=== PATIENT | female | born 1995 | race Caucasian/White ===

== ENCOUNTER 2017-07-30 08:01 | Emergency (ER) | payer OTHER ==
--- NOTE | 2017-07-30 09:01 | ER Document Report ---
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 Her arms been hurting for 2 days, achy right upper arm pain which he did not think much of it. This morning she woke up and had sharp pain in her neck throat and felt palpitations. This is now resolved. She did not faint nor was she dizzy at the time. She does not use cocaine or methamphetamine but drinks lots of caffeine. - Related Data Allergies/Adverse Reactions: No Known Allergies Allergy (Verified 07/30/17 08:08) Past Medical History - Social History Smoking Status: Never Smoker Family History: None Review of Systems - Review of Systems Notes: REVIEW OF SYSTEMS GEN: Denies fever, chills, weight loss ENT: Denies sore throat, nasal discharge, ear pain EYES: Denies blurry vision, eye pain, discharge CV: Palpitations RESP: Denies cough, shortness of breath, wheezing GI: Denies abdominal pain, nausea, vomiting, diarrhea MSK: D arm pain neck pain SKIN: Denies rash, skin lesions LYMPH: Denies swollen glands/lymph nodes NEURO: Denies headache, focal weakness or numbness, dizziness PSYCH: Denies depression, suicidal or homicidal ideation PHYSICAL EXAMINATION General: No acute distress, well-nourished Head: Atraumatic, normocephalic ENT: Mouth normal, oropharynx moist, no exudates or tonsillar enlargement Eyes: Conjunctiva normal, pupils equal, lids normal Neck: No JVD, supple, no guarding CVS: Normal rate, regular rhythm, no murmurs Resp: No resp distress, equal and normal breath sounds bilaterally GI: Nondistended, soft, no tenderness to palpation, no rebound or guarding Ext: No deformities, no edema, normal range of motion in upper and lower ext Back: No CVA or midline TTP Skin: No rash, warm Lymphatic: No lymphadeopathy noted Neuro: Awake, alert. Face symmetric. GCS 15. Physical Exam - Vital signs Vitals: Temp Pulse Resp BP Pulse Ox 98.4 F 99 16 133/88 H 100 07/30/17 08:12 07/30/17 08:12 07/30/17 08:12 07/30/17 08:12 07/30/17 08:12 Course - Re-evaluation Re-evalutation: 07/30/17 09:01 Very well-appearing young woman with a history of fainting presents with sharp pain in her neck and throat accompanied by palpitations. She has a regular rhythm in the ED with normal vitals. Differential includes arrhythmias R normality is less likely panic or anxiety. We will check electrolytes EKG and place her on cardiac monitoring. If everything comes back negative I would refer her to cardiology for mobile monitoring given her history of "fainting disorder." 07/30/17 13:48 No ectopy on the monitor check twice. A symptomatically ED. Labs and EKG normal. Discharged home in stable condition. Referred to Dr. Schmidt for possible ambulatory cardiac monitoring. I have discussed with the patient there likely diagnosis, aftercare plan, follow-up plans and my usual and customary return precautions. They verbalized understanding of this. - Vital Signs Vital signs: Temp Pulse Resp BP Pulse Ox 98.3 F 74 16 108/79 98 07/30/17 10:21 07/30/17 10:21 07/30/17 10:21 07/30/17 10:21 07/30/17 10:21 - Laboratory Result Diagrams: 07/30/17 09:32 - Diagnostic Test Radiology reviewed: Image reviewed, Reports reviewed - EKG Interpretation by Me EKG shows normal: Sinus rhythm, [place] Rate: Normal Rhythm: NSR When compared to previous EKG there are: Previous EKG unavailable Discharge - Discharge Clinical Impression: Heart palpitations Condition: Good Disposition: HOME, SELF-CARE Instructions: Palpitations (Irregular or Rapid Heartrate) ([facility]) Additional Instructions: Please avoid all caffeine. Please follow-up with cardiology for possible heart monitor placement. Forms: Return to Work Referrals: STEFAN SCHMIDT MD [ACTIVE STAFF] - Follow up in 1 week
[2017-07-30 09:59] LABS: ANION GAP 10 (5-19); BLOOD UREA NITROGEN 14 mg/dL (7-20); CALCIUM 9.7 mg/dL (8.4-10.2); CARBON DIOXIDE 26 mmol/L (22-30); CHLORIDE 107 mmol/L (98-107); GLUCOSE 90 mg/dL (75-110); POTASSIUM 4.3 mmol/L (3.6-5.0); SODIUM 142.5 mmol/L (137-145)
[2017-07-30 10:26] VITALS: BP 108/79
--- NOTE | 2017-07-30 13:03 | EKG REPORT ---
SEVERITY:- NORMAL ECG - SINUS RHYTHM : Confirmed by: Andrew Conner MD 30-Jul-2017 13:01:44
== END 2017-07-30 10:21 | disposition home or self-care (01) ==
LOC: ER 08:01
DX: R00.2 Palpitations (principal); M79.621 Pain in right upper arm; M54.2 Cervicalgia; R07.0 Pain in throat
CPT/HCPCS: 36415; 80048; 93005; 93010; 99285